=== PATIENT | female | born 1975 | race Caucasian/White ===

== ENCOUNTER 2017-08-13 15:15 | Emergency (ER) | payer OTHER ==
[~2017-08-13] VITALS: Ht 177.8 cm; Wt 87.5 kg
[~2017-08-13 15:15] MED LIST: ATIVAN; ATIVAN2 MG PO; CELEXA; CELEXA40 MG PO; LAMICTAL; LAMICTAL PO; LITHIUM; LITHIUM PO; NORCO 7.5-3251 EACH PO; SEROQUEL100 MG PO; TRAZADON; TRAZODONE HCL300 MG PO
[2017-08-13] MEDS ORDERED: SODIUM CHLORIDE 0.9% 1000ML 1,000 ML IV STA (16:06)
[2017-08-13] MEDS ORDERED: ONDANSETRON HCL INJ 2 MG/ML VIAL IV STA (16:06)
[2017-08-13] MEDS ORDERED: KETOROLAC TROMETHAMINE 30 MG/ML VIAL IV STA (16:07)
[2017-08-13 16:26] LABS: BASOPHILS # (AUTO) 0.1 (0.0-0.1); BASOPHILS % 0.7 % (0.0-1.0); HEMOGLOBIN 13.3 g/dL (12.0-16.0); LYMPHOCYTES # (AUTO) 1.8 (1.0-3.2); MEAN CORPUSCULAR HEMOGLOBIN 32.2 pg (28-32); MEAN CORPUSCULAR HGB CONC 33.3 g/dL (31-35); MEAN CORPUSCULAR VOLUME 96.9 fL (81-99); MONOCYTES # (AUTO) 0.4 (0.2-0.8); MONOCYTES % 5.2 % (4.4-11.3); NEUTROPHILS # (AUTO) 4.5 (2.1-6.9); NEUTROPHILS % 66.5 % (38.7-80.0); PLATELET COUNT 305 x10e3/uL (140-360); RED BLOOD COUNT 4.13 x10e6/uL (3.6-5.1); RED CELL DISTRIBUTION WIDTH 12.1 % (11.7-14.4)
[2017-08-13] MEDS ORDERED: ONDANSETRON HCL INJ 2 MG/ML VIAL IV SCH (16:45)
[2017-08-13] MEDS ORDERED: KETOROLAC TROMETHAMINE 30 MG/ML VIAL IV SCH (16:45)
[2017-08-13 16:46] LABS: ALANINE AMINOTRANSFERASE 19 IU/L (0-55); ALBUMIN 4.3 g/dL (3.5-5.0); ALBUMIN/GLOBULIN RATIO 1.2 (0.8-2.0); ALKALINE PHOSPHATASE 62 IU/L (40-150); ANION GAP 13.1 mmol/L (8-16); BLOOD UREA NITROGEN 9 mg/dL (7-26); BUN/CREATININE RATIO 10 (6-25); CALCIUM 9.7 mg/dL (8.4-10.2); CARBON DIOXIDE 27 mmol/L (22-29); CHLORIDE 104 mmol/L (98-107); CREATININE, SERUM 0.86 mg/dL (0.57-1.11); EST GLOMERULAR FILTRATION RATE > 60 ML/MIN (60-); GLUCOSE 89 mg/dL (74-118); POTASSIUM 4.1 mmol/L (3.5-5.1); SODIUM 140 mmol/L (136-145)
[2017-08-13] MEDS ORDERED: DIPHENHYDRAMINE HCL INJ 50 MG/ML VIAL IV ONE (18:30)
[2017-08-13] MEDS ORDERED: PROMETHAZINE 25MG/ NS 50ML (IV) IV ONE (18:30)
[2017-08-13] MEDS ORDERED: DIAZEPAM INJ 5 MG/ML 2 ML IV ONE (18:30)
[2017-08-13] MEDS ORDERED: VALIUM2 MG PO (19:18)
[2017-08-13] MEDS ORDERED: PROMETHAZINE HC25 M1 PO (19:18)
[2017-08-13 19:45] VITALS: BP 130/87
== END 2017-08-13 19:46 | disposition home or self-care (01) ==
LOC: ER 15:15
DX: S16.1XXA Strain of muscle, fascia and tendon at neck level, initial encounter (principal); J01.00 Acute maxillary sinusitis, unspecified; F31.9 Bipolar disorder, unspecified; X58.XXXA Exposure to other specified factors, initial encounter
CPT/HCPCS: 36415; 80053; 84702; 85025; 96360; 96374; 99284; J1200; J1885; J2405; J2550; J3360; J7030

== ENCOUNTER 2018-03-16 20:18 | Emergency (ER) | payer OTHER ==
[~2018-03-16] VITALS: Ht 177.8 cm; Wt 87.5 kg
[~2018-03-16 20:18] MED LIST changes: +PROMETHAZINE HC25 M1 PO; +VALIUM2 MG PO
[2018-03-16] MEDS ORDERED: ONDANSETRON HCL INJ 2 MG/ML VIAL IV STA (21:02)
[2018-03-16] MEDS ORDERED: MORPHINE SULFATE 2 MG/ML SYR IV STA ×2 (21:02→22:12)
[2018-03-16] MEDS ORDERED: SODIUM CHLORIDE 0.9% 1000ML 1,000 ML IV SCH (21:15)
== END 2018-03-16 22:25 | disposition home or self-care (01) ==
LOC: FSED 20:18
DX: K62.89 Other specified diseases of anus and rectum (principal); K64.5 Perianal venous thrombosis
CPT/HCPCS: 80053; 81003; 81025; 85025; 99283; J2270; J2405; J7030

== ENCOUNTER → 2020-05-24 | Outpatient (CLI) | payer OTHER | LOC: MAMMO 11:26 | PROVIDERS: ATTEND Obstetrics & Gynecology | DX: Z12.31 Encounter for screening mammogram for malignant neoplasm of breast (principal) | CPT/HCPCS: 77067 ==